=== PATIENT | male | born 1960 | race Two or more races ===

== ENCOUNTER 2019-08-02 18:51 | Emergency (ER) | payer MEDICARE ==
[~2019-08-02] VITALS: Ht 177.8 cm; Wt 73.0 kg
[2019-08-02] MEDS ORDERED: IBUPROFEN 600MG TABLET PO STA (20:35)
[2019-08-02 21:58] VITALS: BP 120/78
== END 2019-08-02 23:58 | disposition home or self-care (01) ==
LOC: ER 18:51
DX: M25.511 Pain in right shoulder (principal); Z91.81 History of falling
CPT/HCPCS: 73030; 73060; 99283

== ENCOUNTER 2019-08-29 18:39 | Emergency (ER) | payer MEDICARE ==
[~2019-08-29] VITALS: Ht 175.3 cm; Wt 75.0 kg
[2019-08-29 18:59] VITALS: BP 106/69
== END 2019-08-30 00:07 | disposition left against medical advice (07) ==
LOC: ER 18:39
DX: R10.9 Unspecified abdominal pain (principal); Z53.21 Procedure and treatment not carried out due to patient leaving prior to being seen by health care provider